=== PATIENT | male | born 1950 | race Caucasian/White ===

== ENCOUNTER 2018-08-13 09:35 | Outpatient (CLI) | payer MEDICARE ==
[2018-08-13] MEDS ORDERED: ISOVUE-370 76%-LOCM 1 ML ONE (13:35)
--- NOTE | 2018-08-13 13:39 | CT ---
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 COMPARISON: None. FINDINGS: The previously seen enlarged lymph nodes within the left supraclavicular and left axillary region, on the CTA of the neck, dated 03/21/2014, are no longer demonstrated. The mild ectasia involving the ascending aorta is relatively stable, measuring 3.9 cm. There are homar cified lymph nodes within the left hilar region. There is a calcified granuloma in the left lower lo be. There are numerous small, noncalcified pulmonary nodules seen throughout both lungs. The largest pul monary nodule is seen within the right middle lobe, measuring 1.2 cm. The adrenal glands appear within normal limits. There is a small suspected cyst within the right hep atic lobe. The pancreas is unremarkable. There are calcified granuloma within the spleen. There is a 1 cm, no nobstructing calculus within the mid to left kidney. There is a 2 mm, nonobstructing calculus within the lower pole left kidney. There is slight prominence of the renal pelvis and calyceal systems [place] aterally, right greater than left, with normal ureters, which may reflect mild bilateral UPJ obstruct ion. The bladder is moderately distended. There are scattered diverticula involving the colon with a mild amount of retained stool. The small bowel is normal appearing. There are numerous sclerotic lesions involving the visualized osseous structures, particularly within the pelvis. One of the largest sclerotic lesions within the pelvis is seen within the right ilium, measuring 2.3 cm. There are numerous sclerotic lesions involving the thoracolumbar spine. There is a moderate to severe wedge compression abnormality of T6, of undetermined chronicity. There are mild wedge compression abnormalities of T7 through T11, of undetermined chronicity. There are multiple s clerotic lesions involving the ribs, as well as the right scapular, near the coracoid process. There are sclerotic lesions involving the sternum. IMPRESSION: 1. Findings of pulmonary and osseous metastatic disease. 2. Age indeterminate compression abnormalities of T6 through T11. This is most pronounced at T6, wh ere there is a moderate to severe wedge compression abnormality. 3. Findings of prior granulomatous disease. 4. Left nephrolithiasis. 5. Prominence of the pelvicalyceal systems bilaterally with normal appearing ureters, which may refl ect mild chronic ureteropelvic junction obstruction. 6. Moderate distention of the bladder. 7. Resolution of previously seen lymphadenopathy involving the left supraclavicular and left axillar y region when compared to a CT of the neck from [facility], dated 03/19/2014. POS: HEMNATH
== END 2018-08-13 09:36 | disposition home or self-care (01) ==
LOC: BICCT 09:35
PROVIDERS: ATTEND Internal Medicine Hematology & Oncology
DX: C61 Malignant neoplasm of prostate (principal); R97.20 Elevated prostate specific antigen [PSA]; C79.51 Secondary malignant neoplasm of bone; C78.00 Secondary malignant neoplasm of unspecified lung; N20.0 Calculus of kidney; N32.89 Other specified disorders of bladder; M48.54XA Collapsed vertebra, not elsewhere classified, thoracic region, initial encounter for fracture
CPT/HCPCS: 71260; 74177

== ENCOUNTER 2018-11-28 10:05 | Outpatient (CLI) | payer MEDICARE ==
[2018-11-28] MEDS ORDERED: Iopamidol 370 76% 100 ML VIAL ONE (10:29)
[2018-11-28 11:31] LABS: Estimated GFR-MDRD - POC Greater than 90
--- NOTE | 2018-11-28 15:49 | CT ---
CT CHEST WITH IV CONTRAST CT ABDOMEN AND PELVIS WITH IV AND ORAL COTNRAST: HISTORY: Prostate cancer metastatic disease. COMPARISON: 08/13/2018. FINDINGS: Lungs remain hyperinflated. Throughout each lung, there are innumerable small noncalcified lesions. They have increased in size and number since the prior study, including a 2.4 cm oval mass abutting the posterior pleura at the posterior aspect of the right upper lobe. On the right, what was previou sly the largest nodule in the right middle lobe at 1.2 cm is now 1.4 cm. Most of the small new nodul es are at each anterior lung base. On the left, the previously largest nodule that was 0.8 cm now 1. 4. No pleural fluid or pneumothorax. No enlarged lymph nodes are apparent within the mediastinum. Calcified granulomata of the spleen are consistent with healed granulomatous disease. Nonobstructing calculus at the inferior pole of the left kidney is again demonstrated. Extensive widespread sclerotic metastases throughout the axial and appendicular skeleton are again de monstrated. The severity and extent of the disease makes direct comparison not possible, although th e overall appearance has not changed significantly. Small cyst within the liver, diverticula of the colon, and other incidental-type findings appear stab le. IMPRESSION: 1. Significant worsening in CT appearance of extensive pulmonary metastases, now measuring up to 1.4 cm in the left upper lobe and right upper lobe. 2. Extensive sclerotic osseous metastatic disease overall appears stable. POS: HEMANTH
--- NOTE | 2018-11-28 16:10 | NM ---
RADIONUCLIDE BONE SCAN: HISTORY: Prostate cancer with metastatic disease. FINDINGS: There are enumerable areas of increased radiotracer uptake throughout the ribs and thoracolumbar spin e. Uptake is most intense at the L3 level of the lumbar spine. Markedly increased uptake also overl ies the right scapular glenoid, the left iliac wing, and the right supra-acetabular level. A focus o f increased uptake projects over the right parietal calvarium. IMPRESSION: The extensive sclerotic metastatic disease on CT scan is also well demonstrated on scintigraphic bone imaging. POS: HEMANTH
== END 2018-11-28 10:06 | disposition home or self-care (01) ==
LOC: CT 10:05
PROVIDERS: ATTEND Internal Medicine Hematology & Oncology
DX: C61 Malignant neoplasm of prostate (principal); C78.02 Secondary malignant neoplasm of left lung; C78.01 Secondary malignant neoplasm of right lung; C79.51 Secondary malignant neoplasm of bone
CPT/HCPCS: 71260; 74177; 78306; 82565; A9503

== ENCOUNTER 2021-01-18 19:23 | Inpatient (IN) | payer MEDICARE ==
[2021-01-18 22:07] VITALS: BMI 18.0
[2021-01-18] MEDS ORDERED: Senokot S 8.6-50 MG TAB PO PRN (22:43)
[2021-01-18] MEDS ORDERED: Ondansetron ODT 4 MG TAB PO PRN (22:43)
[2021-01-18] MEDS ORDERED: Acetaminophen 500 MG TAB PO PRN (22:43)
[2021-01-18] MEDS ORDERED: hydrALAZINE 20 MG/ML VIAL SLOW IVP PRN (22:43)
[2021-01-18] MEDS ORDERED: Ondansetron PF 4 MG/2 ML Vial IVP PRN (22:43)
[2021-01-18] MEDS ORDERED: Ketorolac Tromethamine 30 MG/ML VIAL IVP PRN (22:57)
[2021-01-18] MEDS ORDERED: cycloSPORINE 0.05% Ophthalmic Droperette EA EYE SCH (23:45)
[2021-01-19] MEDS: Lidocaine 5% Patch TD SCH ×2 (00:01→23:32)
[2021-01-19 07:17] LABS: #Eosinphils 0.1 thou/uL (0.0-0.7); #Lymphocytes 0.7 thou/uL (1.20-3.40); #Monocytes 0.4 thou/uL (0.11-0.59); #Neutrophils 4.3 thou/uL (1.40-6.50); %Basophils 0.2 % (0.0-1.0); %Eosinophils 1.1 % (0.0-10.0); %Lymphocytes 13.3 % (21.0-51.0); %Neutrophils 77.4 % (42.0-75.0); Hemoglobin 9.5 g/dL (14.0-18.0); Mean Corpuscular HGB CONC 33.6 g/dL (32.0-36.0); Mean Corpuscular Hemoglobin 32.8 pg (27.0-31.0); Mean Corpuscular Volume 97.8 fL (78.0-98.0); Mean Platelet Volume 7.2 fL (7.4-10.4); Platelet Count 192 thou/uL (130-400); RBC Distribution Width 12.7 % (11.5-14.5); White Blood Cell (WBC) Count 5.6 thou/uL (4.8-10.8)
[2021-01-19 07:37] LABS: ALT (SGPT) 10 U/L (8-55); AST (SGOT) 23 U/L (5-34); Alkaline Phosphatase 136 U/L (40-110); Anion Gap 11 mmol/L (10-20); BUN (Urea Nitrogen) 11 mg/dL (8.4-25.7); Bilirubin, Total 0.3 mg/dL (0.2-1.2); Calc. Creatinine Clearance 88 mL/min (70-130); Calcium 9.2 mg/dL (7.8-10.44); Carbon Dioxide 27 mmol/L (23-31); Chloride 107 mmol/L (98-107); Globulin 2.2 g/dL (2.4-3.5); Glucose 119 mg/dL (80-115); Potassium 3.8 mmol/L (3.5-5.1); Protein, Total 5.2 g/dL (5.8-8.1); Sodium 141 mmol/L (136-145)
[2021-01-19] MEDS ORDERED: cycloSPORINE 0.05% Ophthalmic Droperette EA EYE SCH (09:00)
[2021-01-19] MEDS: Famotidine 20 MG TAB PO SCH ×2 (09:00→20:43)
[2021-01-19] MEDS ORDERED: SOD SEL PO SCH (09:00)
[2021-01-19] MEDS ORDERED: MAGNESIUM GLYCINATE MAG OXIDE PO SCH (09:00)
[2021-01-19] MEDS ORDERED: BETA PO SCH (09:00)
[2021-01-19] MEDS ORDERED: SAW PO SCH (09:00)
[2021-01-19] MEDS ORDERED: PYG PO SCH (09:00)
[2021-01-19] MEDS ORDERED: VIT E PO SCH (09:00)
[2021-01-19] MEDS ORDERED: LYC PO SCH (09:00)
[2021-01-19] MEDS: cycloSPORINE 0.05% Ophthalmic Droperette EA EYE SCH ×2 (11:31→20:43)
[2021-01-19] MEDS: Sodium Chloride 0.9% 1,000 ML IV SCH ×2 (11:31)
[2021-01-19] MEDS ORDERED: Transdermal Patch Removal TOP SCH (12:00)
[2021-01-19] MEDS ORDERED: HYDROcodone/Acetaminophen 5/325 mg Tablet PO PRN (14:38)
[2021-01-19 15:34] LABS: CEA, Serum 1.64 ng/mL (< or = 5.0)
[2021-01-19 16:07] LABS: PSA-Symptomatic (DIAGNOSTIC) 818.67 ng/mL (0-4.0)
[2021-01-19] MEDS: Dexamethasone 4 MG TAB PO SCH (20:43)
[2021-01-19] MEDS ORDERED: Lidocaine 5% Patch TD SCH (23:59)
[2021-01-20] MEDS: Sodium Chloride 0.9% 1,000 ML IV SCH ×2 (02:31→17:49)
[2021-01-20] MEDS: Dexamethasone 4 MG TAB PO SCH ×2 (11:07→20:00)
[2021-01-20] MEDS: Famotidine 20 MG TAB PO SCH ×2 (11:07→20:00)
[2021-01-20] MEDS: Enoxaparin Sodium 40 MG/0.4 ML SYRINGE SC SCH (12:51)
[2021-01-20] MEDS: cycloSPORINE 0.05% Ophthalmic Droperette EA EYE SCH ×2 (12:51→20:00)
[2021-01-21] MEDS: Lidocaine 5% Patch TD SCH (00:06)
[2021-01-21] MEDS: Sodium Chloride 0.9% 1,000 ML IV SCH ×2 (06:11→06:14)
[2021-01-21] MEDS: Dexamethasone 4 MG TAB PO SCH ×2 (09:20→20:32)
[2021-01-21] MEDS: Famotidine 20 MG TAB PO SCH ×2 (09:20→20:32)
[2021-01-21] MEDS: cycloSPORINE 0.05% Ophthalmic Droperette EA EYE SCH ×2 (09:21→20:33)
[2021-01-21] MEDS: Enoxaparin Sodium 40 MG/0.4 ML SYRINGE SC SCH (09:21)
[2021-01-22] MEDS: Lidocaine 5% Patch TD SCH ×2 (00:47→23:49)
[2021-01-22] MEDS: Dexamethasone 4 MG TAB PO SCH ×2 (09:10→19:55)
[2021-01-22] MEDS: Famotidine 20 MG TAB PO SCH ×2 (09:10→20:09)
[2021-01-22] MEDS: cycloSPORINE 0.05% Ophthalmic Droperette EA EYE SCH ×2 (09:10→19:55)
[2021-01-22] MEDS: Enoxaparin Sodium 40 MG/0.4 ML SYRINGE SC SCH (09:11)
[2021-01-23] MEDS: Dexamethasone 4 MG TAB PO SCH ×2 (09:14→20:10)
[2021-01-23] MEDS: Enoxaparin Sodium 40 MG/0.4 ML SYRINGE SC SCH (09:15)
[2021-01-23] MEDS: Famotidine 20 MG TAB PO SCH ×3 (09:16→20:11)
[2021-01-23] MEDS: cycloSPORINE 0.05% Ophthalmic Droperette EA EYE SCH ×2 (09:16→20:10)
[2021-01-23] MEDS: Lidocaine 5% Patch TD SCH (20:12)
[2021-01-23 20:18] VITALS: TEMP 97.8
[2021-01-24 07:13] LABS: #Lymphocytes 0.7 thou/uL (1.20-3.40); #Monocytes 0.4 thou/uL (0.11-0.59); %Eosinophils 0.4 % (0.0-10.0); %Lymphocytes 9.4 % (21.0-51.0); %Monocytes 5.9 % (0.0-10.0); %Neutrophils 84.3 % (42.0-75.0); Mean Corpuscular HGB CONC 32.6 g/dL (32.0-36.0); Mean Corpuscular Hemoglobin 31.6 pg (27.0-31.0); Mean Corpuscular Volume 96.7 fL (78.0-98.0); Mean Platelet Volume 7.1 fL (7.4-10.4); Platelet Count 267 thou/uL (130-400); RBC Distribution Width 12.8 % (11.5-14.5); Red Blood Cell (RBC) Count 3.15 mill/uL (4.70-6.10); White Blood Cell (WBC) Count 7.1 thou/uL (4.8-10.8)
[2021-01-24 07:30] LABS: Anion Gap 10 mmol/L (10-20); BUN (Urea Nitrogen) 21 mg/dL (8.4-25.7); Calc. Creatinine Clearance 97 mL/min (70-130); Calcium 8.8 mg/dL (7.8-10.44); Carbon Dioxide 26 mmol/L (23-31); Chloride 106 mmol/L (98-107); Glucose 145 mg/dL (80-115); Potassium 4.1 mmol/L (3.5-5.1); Sodium 138 mmol/L (136-145)
[2021-01-24] MEDS: cycloSPORINE 0.05% Ophthalmic Droperette EA EYE SCH (07:59)
[2021-01-24] MEDS: Famotidine 20 MG TAB PO SCH (07:59)
[2021-01-24] MEDS: Enoxaparin Sodium 40 MG/0.4 ML SYRINGE SC SCH (07:59)
[2021-01-24] MEDS: Dexamethasone 4 MG TAB PO SCH (08:02)
[2021-01-24 08:49] VITALS: BP 143/67
== END 2021-01-24 14:50 | DRG 723 ==
LOC: ONC 21:18
PROVIDERS: ADMIT Family Medicine; ATTEND Hospitalist
DX: C61 Malignant neoplasm of prostate (principal); C79.51 Secondary malignant neoplasm of bone; E44.0 Moderate protein-calorie malnutrition; C78.7 Secondary malignant neoplasm of liver and intrahepatic bile duct; C78.02 Secondary malignant neoplasm of left lung; C78.01 Secondary malignant neoplasm of right lung; Z68.1 Body mass index [BMI] 19.9 or less, adult; Z66 Do not resuscitate; E86.0 Dehydration; H10.9 Unspecified conjunctivitis; F25.9 Schizoaffective disorder, unspecified; D63.8 Anemia in other chronic diseases classified elsewhere; Z91.14 Patient's other noncompliance with medication regimen
CPT/HCPCS: 36415; 70553; 80048; 80053; 82378; 84153; 85025; 87324; 87449; J8540